=== PATIENT | female | born 1990 | race Hispanic/Latino ===

== ENCOUNTER 2022-04-06 13:06 | Day surgery (SDC) | payer MEDICAID, OTHER ==
[2022-04-06 13:51] VITALS: BMI 33.0
[2022-04-06] MEDS ORDERED: hydrALAZINE 20 MG/ML VIAL SLOW IVP PRN (15:00)
== END 2022-04-06 16:23 | disposition home or self-care (01) ==
LOC: CSHLD/OP 13:06
PROVIDERS: ATTEND Obstetrics & Gynecology
DX: O47.03 False labor before 37 completed weeks of gestation, third trimester (principal); Z98.891 History of uterine scar from previous surgery; Z86.19 Personal history of other infectious and parasitic diseases; Z79.899 Other long term (current) drug therapy; Z3A.30 30 weeks gestation of pregnancy
CPT/HCPCS: 99283

== ENCOUNTER 2022-06-05 09:48 | Inpatient (IN) | payer OTHER ==
[2022-06-04 12:14] LABS: Hemoglobin 11.8 g/dL (12.0-15.5); Platelet Count 225 10x3/uL (150-450)
[2022-06-04 12:48] LABS: SARS-CoV-2 NAA Rapid Test Not Detected (NotDetected)
[2022-06-04 12:49] LABS: Syphilis Antibody Nonreactive (Nonreactive); Syphilis Antibody Index 0.03 S/CO (<1.00 Non-Reactive)
[2022-06-04 12:50] LABS: HBSAg Index 0.16 S/CO (0-0.99); Hep B Surf Ag Non-Reactive S/CO (NonReactive)
[2022-06-05 10:26] VITALS: BMI 33.6
[2022-06-05] MEDS ORDERED: Carboprost 250 MCG/ML AMP IM PRN (11:09)
[2022-06-05] MEDS ORDERED: Famotidine/PF 20 mg/2ml Vial SLOW IVP PRN (11:09)
[2022-06-05] MEDS ORDERED: Promethazine HCl 25 MG/ML VIAL IM PRN ×2 (11:09→11:18)
[2022-06-05] MEDS ORDERED: Misoprostol 200 MCG TAB PR PRN (11:09)
[2022-06-05] MEDS ORDERED: Tranexamic Acid 1,000 MG in Sodium Chloride 0.9% 250 ML 250 ML IVPB PRN (11:09)
[2022-06-05] MEDS ORDERED: hydrALAZINE 20 MG/ML VIAL SLOW IVP PRN ×2 (11:09→15:48)
[2022-06-05] MEDS ORDERED: Ondansetron PF 4 MG/2 ML Vial IVP PRN ×3 (11:09→15:48)
[2022-06-05] MEDS ORDERED: Bicitra 30 ML UDCUP PO PRN (11:09)
[2022-06-05] MEDS ORDERED: CEFAZOLIN 2 GM in Sodium Chloride 0.9% 100 ML IVPB SCH (11:15)
[2022-06-05] MEDS ORDERED: Lactated Ringer's 1,000 ML IV SCH (11:15)
[2022-06-05] MEDS ORDERED: NS w/ Oxytocin 30 units 500 ML IV SCH (11:15)
[2022-06-05] MEDS ORDERED: Meperidine HCl/PF 25 MG/ML VIAL SLOW IVP PRN (11:18)
[2022-06-05] MEDS ORDERED: Fentanyl 100 MCG/2 ML VIAL SLOW IVP PRN (11:18)
[2022-06-05] MEDS ORDERED: diphenhydrAMINE 50 MG/ML VIAL IVP PRN (11:18)
[2022-06-05] MEDS ORDERED: Naloxone HCl 0.4 mg/ml Vial IV PRN (11:18)
[2022-06-05] MEDS ORDERED: Naloxone HCl 0.4 mg/ml Vial IVP PRN ×2 (11:18)
[2022-06-05] MEDS ORDERED: Moisturizing Cream (Eucerin) 113 GM JAR TOP PRN (11:18)
[2022-06-05] MEDS ORDERED: Promethazine HCl 25 MG SUPP PR PRN (11:18)
[2022-06-05] MEDS ORDERED: Ondansetron HCl/PF 4 MG/2 ML Vial IVP PRN (11:18)
[2022-06-05] MEDS ORDERED: Communication Order-Pharmacy FS SCH (11:30)
[2022-06-05] MEDS ORDERED: Metoclopramide HCl 10 MG/2 ML VIAL ONE (11:32)
[2022-06-05] MEDS ORDERED: Ketorolac Tromethamine 30 MG/ML VIAL ONE (11:32)
[2022-06-05] MEDS ORDERED: Phenylephrine 40 MG/NS 250 ML 250 ML ONE (11:32)
[2022-06-05] MEDS ORDERED: Oxytocin 10 UNITS/ML VIAL ONE (11:32)
[2022-06-05] MEDS ORDERED: Ondansetron PF 4 MG/2 ML Vial ONE (11:32)
[2022-06-05] MEDS ORDERED: Dexamethasone 4 mg/ml Vial ONE (11:33)
[2022-06-05] MEDS ORDERED: Morphine PF 10 MG/10 ML VIAL ONE (11:33)
[2022-06-05] MEDS ORDERED: Lanolin Ointment 7 GM TUBE TOP PRN (15:48)
[2022-06-05] MEDS ORDERED: diphenhydrAMINE 25 MG CAP PO PRN (15:48)
[2022-06-05] MEDS ORDERED: Boostrix 0.5 ML (Tdap) VIAL (>/=7 yrs of age) IM ONE (15:48)
[2022-06-05] MEDS ORDERED: HYDROcodone/Acetaminophen 5/325 mg Tablet PO PRN ×2 (23:31)
[2022-06-06] MEDS: Docusate 100 MG CAP PO SCH ×3 (03:10→22:30)
[2022-06-06] MEDS: Ferrous Sulfate 325 MG TAB PO SCH ×3 (03:10→22:30)
[2022-06-06] MEDS: Ketorolac Tromethamine 30 MG/ML VIAL IVP PRN ×3 (03:51→16:23)
[2022-06-06 04:21] LABS: Hemoglobin 9.5 g/dL (12.0-15.5); Mean Corpuscular HGB CONC 34.5 g/dL (32.0-36.0); Mean Corpuscular Hemoglobin 30.4 pg (27.0-33.0); Mean Corpuscular Volume 87.9 fl (81.6-98.3); Mean Platelet Volume 9.3 fl (7.4-10.4); Platelet Count 187 10x3/uL (150-450); RBC Distribution Width 13.7 % (11.5-14.5); Red Blood Cell (RBC) Count 3.13 10x6/uL (3.90-5.03)
[2022-06-06] MEDS ORDERED: Senokot 8.6 MG TAB PO SCH (07:15)
[2022-06-06] MEDS: Polyethylene Glycol 3350 17 GM Packet PO SCH (10:12)
[2022-06-06] MEDS: Prenatal Vitamin 1 TAB PO SCH (10:12)
[2022-06-06] MEDS: Ibuprofen 800 MG TAB PO SCH (22:30)
[2022-06-07] MEDS: Ibuprofen 800 MG TAB PO SCH (05:41)
[2022-06-07 08:12] VITALS: BP 114/62; TEMP 98.4
[2022-06-07] MEDS: Prenatal Vitamin 1 TAB PO SCH (09:13)
[2022-06-07] MEDS: Polyethylene Glycol 3350 17 GM Packet PO SCH (09:13)
[2022-06-07] MEDS: Ferrous Sulfate 325 MG TAB PO SCH (09:13)
[2022-06-07] MEDS: Docusate 100 MG CAP PO SCH (09:13)
== END 2022-06-07 11:58 | disposition home or self-care (01) | DRG 788 ==
LOC: CSHLD 09:48 → CSHPP 15:36
PROVIDERS: ADMIT Obstetrics & Gynecology; ATTEND Obstetrics & Gynecology
PROC: 10D00Z1 Extraction of Products of Conception, Low, Open Approach (ICD-10-PCS; principal; 2022-06-05)
DX: O34.211 Maternal care for low transverse scar from previous cesarean delivery (principal); O13.4 Gestational [pregnancy-induced] hypertension without significant proteinuria, complicating childbirth; Z3A.39 39 weeks gestation of pregnancy; Z37.0 Single live birth; Z20.822 Contact with and (suspected) exposure to COVID-19; Z79.899 Other long term (current) drug therapy; O99.214 Obesity complicating childbirth; E66.9 Obesity, unspecified
CPT/HCPCS: 36415; 51702; 85014; 85018; 85027; 85049; 86780; 86850; 86900; 86901; 87340; J1100; J1885; J2274; J2405; J2590; J2765; J3490; U0002

== ENCOUNTER 2025-01-29 05:46 | Inpatient (IN) | payer OTHER ==
[2025-01-26 11:06] LABS: Hematocrit 32.2 % (34.9-44.5); Hemoglobin 11.4 g/dL (12.0-15.5); Platelet Count 217 10x3/uL (150-450)
[2025-01-26 11:40] LABS: Syphilis Antibody Index 0.03 S/CO (<1.00 Non-Reactive)
[2025-01-26 11:41] LABS: Hep B Surf Ag Non-Reactive S/CO (NonReactive)
[2025-01-29 06:33] VITALS: BMI 34.7
[2025-01-29] MEDS ORDERED: Bicitra 30 ML UDCUP PO PRN (06:38)
[2025-01-29] MEDS ORDERED: Famotidine/PF 20 mg/2ml Vial SLOW IVP PRN (06:38)
[2025-01-29] MEDS ORDERED: hydrALAZINE 20 MG/ML VIAL SLOW IVP PRN ×2 (06:38→11:22)
[2025-01-29] MEDS ORDERED: Diphenoxylate HCl/Atropine Tablet PO PRN (06:38)
[2025-01-29] MEDS ORDERED: Oxytocin 30 units/NS 500 ML 500 ML IV SCH (06:38)
[2025-01-29] MEDS ORDERED: Methylergonovine 0.2 MG/ML VIAL IM PRN (06:38)
[2025-01-29] MEDS ORDERED: Tranexamic Acid 1,000 MG/10 ML VIAL IVP PRN (06:38)
[2025-01-29] MEDS ORDERED: Ondansetron PF 4 MG/2 ML Vial IVP PRN ×4 (06:38→11:22)
[2025-01-29] MEDS ORDERED: Carboprost 250 MCG/ML AMP IM PRN (06:38)
[2025-01-29] MEDS ORDERED: HYDROmorphone 0.5 MG/0.5 ML SYRINGE SLOW IVP PRN (09:17)
[2025-01-29] MEDS ORDERED: diphenhydrAMINE 50 MG/ML VIAL IVP PRN (09:17)
[2025-01-29] MEDS ORDERED: Ketorolac Tromethamine 30 MG (1 mL) VIAL IVP PRN (09:17)
[2025-01-29] MEDS ORDERED: Meperidine HCl/PF 25 MG (1 mL) VIAL SLOW IVP PRN (09:17)
[2025-01-29] MEDS ORDERED: Communication Order-Pharmacy FS SCH (09:30)
[2025-01-29] MEDS: Ketorolac Tromethamine 30 MG (1 mL) VIAL IVP SCH ×2 (10:14→15:59)
[2025-01-29] MEDS ORDERED: Bisacodyl 10 MG SUPP PR PRN (11:22)
[2025-01-29] MEDS ORDERED: Lanolin Ointment 7 GM TUBE TOP PRN (11:22)
[2025-01-29] MEDS ORDERED: Simethicone Chewable 80 MG TAB PO PRN (11:22)
[2025-01-29] MEDS ORDERED: diphenhydrAMINE 25 MG CAP PO PRN (11:22)
[2025-01-29] MEDS: Ondansetron PF 4 MG/2 ML Vial ONE (11:24)
[2025-01-29] MEDS: Oxytocin 10 UNITS/ML VIAL ONE (11:24)
[2025-01-29] MEDS: PHENYLEPHRINE-NS 100 MCG/ML 10 ML SYRINGE ONE (11:24)
[2025-01-29] MEDS: Boostrix 0.5 ML (Tdap) VIAL (>/=7 yrs of age) IM ONE (13:11)
[2025-01-29] MEDS: Ferrous Sulfate 325 MG TAB PO SCH ×2 (13:12→21:00)
[2025-01-29] MEDS ORDERED: Meperidine HCl/PF 25 MG (1 mL) VIAL IM PRN (21:31)
[2025-01-29] MEDS ORDERED: HYDROcodone/Acetaminophen 5/325 mg Tablet PO PRN (21:31)
[2025-01-30 05:12] LABS: Hematocrit 27.2 % (34.9-44.5); Hemoglobin 9.5 g/dL (12.0-15.5); Mean Corpuscular Hemoglobin 30.4 pg (27.0-33.0); Mean Corpuscular Volume 87.2 fL (81.6-98.3); Platelet Count 171 10x3/uL (150-450); Red Blood Cell (RBC) Count 3.12 10x6/uL (3.90-5.03); White Blood Cell (WBC) Count 9.29 10x3/uL (3.5-10.5)
[2025-01-30] MEDS: HYDROcodone/Acetaminophen 5/325 mg Tablet PO PRN (09:46)
[2025-01-30] MEDS: Ibuprofen 800 MG TAB PO SCH (16:29)
[2025-01-31 07:43] VITALS: BP 128/61; TEMP 99
== END 2025-01-31 17:35 | disposition home or self-care (01) | DRG 785 ==
LOC: CSHLD 05:46 → CSHPP 11:00
PROVIDERS: ADMIT Family Medicine; ATTEND Family Medicine
PROC: 0UB70ZZ Excision of Bilateral Fallopian Tubes, Open Approach (ICD-10-PCS; principal; 2025-01-29)
PROC: 10D00Z1 Extraction of Products of Conception, Low, Open Approach (ICD-10-PCS; principal; 2025-01-29)
DX: O34.219 Maternal care for unspecified type scar from previous cesarean delivery (principal); Z3A.39 39 weeks gestation of pregnancy; Z85.9 Personal history of malignant neoplasm, unspecified; Z37.0 Single live birth; Z30.2 Encounter for sterilization
CPT/HCPCS: 36415; 51702; 85014; 85018; 85027; 85049; 86780; 86850; 86900; 86901; 87340; 88302; C1889; J1885; J2274; J2405; J2590; J3010; J7120